=== PATIENT | female | born 1985 | race Caucasian/White ===

== ENCOUNTER 2022-12-27 15:41 | Emergency (ER) | payer MEDICAID, SELFPAY ==
[2022-12-27 15:43] VITALS: BP 143/66; PULSE 78; RESP 16; TEMP 36.6; O2SAT 99; BMI 51.1
[2022-12-27 16:12] VITALS: PULSE 84; RESP 16; O2SAT 97
--- NOTE | 2022-12-27 16:12 | EDS_ITS ---
HPI History of Present Illness Chief Complaint: Dental Detail of Chief Complaint: Left upper molar dental pain for weeks. Informant: patient Onset/Context/Timing Onset: Weeks Context: Gradual Onset Timing: Continuous Current Severity: Moderate Maximum Severity: Moderate Relieved by: NSAIDs Associated Symptoms Assocated Symptom - Dental: Negative for fever Narrative Narrative: 37-year-old female history of prior substance abuse and does not want any narcotic pain medication. She is recovering. States she had a bad left upper molar for the last year. She had a dentist do some type of procedure but he did not do a complete root canal. Intermittently causes her pain. For last 2 weeks she has had pain and some mild swelling. She denies any fever. No trouble swallowing. No trauma. She is currently on Augmentin twice a day. Using Tylenol and Motrin for pain. She has a appointment to see a dentist on January 18. Prior similar symptoms: Yes Recent Illness/Hospitalization: No PFSH PFSH Home Medications albuterol sulfate 90 mcg/actuation aerosol inhaler (Ventolin HFA) 2 puff inhalation PRN PRN Asthma 05/02/15 [History Last Taken 04/22/15] ondansetron 4 mg disintegrating tablet 4 mg PO Q8H PRN PRN Nausea #10 tabs 09/10/16 [Rx Last Taken Unknown] aspirin 81 mg chewable tablet 1 tab PO DAILY 07/06/17 [History Last Taken 07/05/17] ibuprofen 600 mg tablet 600 mg PO Q6H PRN PRN Pain ##30 07/09/17 [Rx Last Taken Unknown] labetalol 100 mg tablet 100 mg PO BID #60 tabs 07/09/17 [Rx Last Taken Unknown] naproxen 250 mg tablet 250 - 500 mg PO Q8H PRN PRN Mild Pain (1-3/10) #30 tabs 07/09/17 [Rx Last Taken Unknown] oxycodone 5 mg tablet 5 - 10 mg PO Q4H PRN PRN Mod-Severe Pain (4-10/10) #28 tabs 07/09/17 [Rx Last Taken Unknown] labetalol 100 mg tablet 200 mg PO BID ##60 07/10/17 [Rx Last Taken Unknown] naproxen 250 mg tablet 250 - 500 mg PO Q8H PRN PRN MILD PAIN ##30 07/10/17 [Rx Last Taken Unknown] oxycodone-acetaminophen 5 mg-325 mg tablet 2 tab PO Q4H PRN PRN Moderate-Severe pain ##30 07/10/17 [Rx Last Taken Unknown] Allergy/AdvReac Type Severity Reaction Status Date / Time No Known Allergies Allergy Verified 12/27/22 15:58 Social History Smoking Status: Never smoker ROS ROS ED ROS Narrative Denies recent illness. Review of Systems ROS Unobtainable: Denies due to encephalopathy Constitutional Constitutional ED: Denies chills or fever(s) Eyes Eyes: Denies blurry vision ENT ENT ED: Denies ear pain Cardiovascular Cardiovascular: Denies chest pain Respiratory/Chest Respiratory/Chest: Denies cough or dyspnea Gastrointestinal Gastrointestinal: Denies abdominal pain Genitourinary Genitourinary ED: Denies dysuria Musculoskeletal Musculoskeletal: Denies arthralgias Integumentary Denies abscess Neurologic Neurologic: Denies headache(s) Psychiatric Psychiatric: Denies anxiety Endocrine Endocrinology: Denies cold intolerance Hematologic/Lymphatic Hematologic/Lymphatic: Denies easy bleeding or easy bruising Allergic/Immunologic Allergic/Immunologic ED: Denies mouth swelling or tongue swelling EXAM Physical Exam Narrative Exam Narrative: 37-year-old female vital signs stable afebrile. Does not look septic or toxic. No significant facial swelling. No trouble breathing. Or swelling. H EENT exam TMs normal. Mouth tongue and subungual region unremarkable. Posterior pharynx normal. No trouble swallowing, breathing or stridor. Left upper first molar is eroded to the gumline. There is minimal gum swelling. No obvious abscess. No significant facial swelling. No trismus. Tenderness to palpation. Rest of her teeth are in pretty good shape. Neck nontender no lymphadenopathy. Lungs clear. Heart regular rate and rhythm no murmur. Otherwise exam unrem arkable. Const Vital Signs: 12/27/22 15:43 Temperature 97.8 F Temperature Source Temporal Pulse Rate 78 Respiratory Rate 16 Blood Pressure 143/66 H Blood Pressure Mean 91 Pulse Ox 99 Oxygen Delivery Method Room Air Positive well nourished, well developed and obese; Negative for cachectic, contractures or unkempt General Appearance ED: well developed and NAD; Negative for unkempt, cachectic, contractures or pallor Nutritional Appearance: obese; Negative for cachectic HEENT HEENT Narrative: Left upper molar eroded to the gumline. Mild swelling. No abscess. No trismus. tenderness; Negative for trauma Face and Sinus: sinuses nontender Mouth ED: Yes oral and palatal mucosa normal, Yes lips normal, Yes tongue normal, Yes salivary gland normal and No mouth trauma Mouth: oral and palatal mucosa normal, lips normal, tongue normal, salivary gland normal and No mouth trauma Teeth and Gingiva: abnormal tooth and associated gingiva Throat: posterior oropharynx normal Eyes PERRL and EOMs intact bilaterally General Eye ED: Negative for pale conjunctiva or scleral icterus Neck no lymphadenopathy, supple and no JVD General: normal visual inspection; Negative for anterior neck swelling, tenderness or submandibular swelling Lymph Lymphatic: no lymphadenopathy noted; Negative for lymphadenopathy Chest Wall inspection of chest normal and palpation of chest normal Resp normal respiratory effort, no retractions and clear to auscultation bilaterally Cardio regular rate, regular rhythm, S1 normal heart sound, S2 normal heart sound and no murmurs Palpation: Negative for palpable S3 Rate: Negative for bradycardia Rhythm: Negative for abnormal rhythm GI normal to inspection, nondistended, normoactive bowel sounds, non-tender, non- distended and no masses Back/Spine no CVA tenderness General Back: Negative for CVA tenderness Cervical Spine: Negative for other Thoracic Spine / Upper Back: Negative for thoracic spinal tenderness Extremity normal to inspection and no joint enlargement General Extremety ED: Negative for edema General Extremity: Negative for edema Neuro oriented x3, CN's II-XII intact bilaterally, moves all extremities and no focal motor deficits Sensorium / Orientation: alert, oriented to person, oriented to place and oriented to time; Negative for orientation impaired Motor Exam: strength 5/5 throughout Psych mental status grossly normal Appearance: Negative for unkempt Attitude: No agitated Mood & Affect: Negative for depressed, anxious or tearful Skin no rashes or lesions noted and no wounds General Skin Exam: Negative for pallor Image ED - URI/Dental Diagram: 1. Left upper first molar eroded to the gumline. Minimal swelling. Tender. No obvious abscess. MDM MDM MDM Narrative Medical decision making narrative: Patient with eroded, tender most likely infected first upper molar. Continue Tylenol Motrin. She is already on Augmentin. She has a dental appointment in 3 weeks which she can follow-up with. Discharge Plan Triage Chief Complaint: Dental ED Provider: Herbert Gallagher Dx/Rx/DC Orders Clinical Impression: Pain, dental, Abscess, dental Instructions: Dental Abscess, ED Dental Pain Prescriptions: No Action albuterol sulfate [Ventolin HFA] 18 GM HFA aerosol inhaler 2 puff inhalation PRN PRN (Reason: Asthma) Label Comments: ondansetron 4 MG tablet 4 mg PO Q8H PRN PRN (Reason: Nausea) Qty: 10 0RF naproxen 250 MG tablet 250 - 500 mg PO Q8H PRN PRN (Reason: Mild Pain (-10/20)) Qty: 30 0RF labetalol 100 MG tablet 100 mg PO BID Qty: 60 0RF oxycodone 5 MG tablet 5 - 10 mg PO Q4H PRN PRN (Reason: Mod-Severe Pain (-05/22)) Qty: 28 0RF ibuprofen 600 MG tablet 600 mg PO Q6H PRN PRN (Reason: Pain) Qty: 30 0RF naproxen 250 MG tablet 250 - 500 mg PO Q8H PRN PRN (Reason: MILD PAIN) Qty: 30 0RF oxycodone-acetaminophen 1 TABLET tablet 2 tab PO Q4H PRN PRN (Reason: Moderate-Severe pain) Qty: 30 0RF labetalol 100 MG tablet 200 mg PO BID Qty: 60 1RF aspirin 81 MG tablet,chewable 1 tab PO DAILY Primary Care Provider: Oskar Almanza Referrals: Oskar Almanza MD [Primary Care Provider] - Activity Restrictions/Additional Instructions: Warm salt water gargling. Alternate Motrin and Tylenol for pain. Continue your antibiotic Augmentin 1 pill twice a day until gone. Follow-up with your dentist as soon as possible he may want to call and see if you get in with your appointment sooner. Disposition Disposition: Home, Self Care
== END 2022-12-27 16:22 | disposition home or self-care (01) ==
LOC: ED 16:19
PROVIDERS: Emergency Provider Emergency Medicine; PCP Family Medicine; Visit Provider Emergency Medicine
DX: K04.7 Periapical abscess without sinus (principal); E66.9 Obesity, unspecified; Z79.82 Long term (current) use of aspirin; Z79.899 Other long term (current) drug therapy
CPT/HCPCS: 99282

== ENCOUNTER → 2024-09-24 | Outpatient (CLI) | payer MEDICAID, SELFPAY ==
[2024-09-29 16:09] LABS: HPV APTIMA, High Risk Negative (Negative)
== END | disposition home or self-care (01) ==
LOC: LABSPEC 11:21
PROVIDERS: PCP Family Medicine; Referring Provider Nurse Practitioner Women's Health; Visit Provider Nurse Practitioner Women's Health
DX: Z12.4 Encounter for screening for malignant neoplasm of cervix (principal); N89.8 Other specified noninflammatory disorders of vagina
CPT/HCPCS: 87070; 87205; 87624; 88175; G0145

== ENCOUNTER → 2024-10-03 | Outpatient (CLI) | payer MEDICAID, SELFPAY ==
--- NOTE | 2024-10-03 11:59 | BI_ITS ---
PROCEDURE: SCRN MAMM (CAD)W/BRIANA BILAT REASON FOR EXAM: F, Age 39 y/o, presents for annual screening mammogram. No family history of breast cancer. TECHNIQUE: Bilateral screening digital breast tomosynthesis with 2D and 3D images. Computer aided detection. COMPARISON: Baseline examination, no priors. FINDINGS: There are scattered areas of fibroglandular density. No suspicious masses, areas of developing architectural distortion, or suspicious calcifications. BI/SCRN MAMM (CAD)W/BRIANA BILAT IMPRESSION: There is no mammographic evidence of malignancy in either breast. BI-RADS 1: NEGATIVE. RECOMMEND ANNUAL MAMMOGRAPHIC SCREENING. Follow-up code: Routine Follow-up The patient will be notified of the results by letter. Reading Location: [id number]
== END | disposition home or self-care (01) ==
LOC: OPBI 11:58
PROVIDERS: PCP Family Medicine; Referring Provider Nurse Practitioner Women's Health; Visit Provider Nurse Practitioner Women's Health
DX: Z12.31 Encounter for screening mammogram for malignant neoplasm of breast (principal)
CPT/HCPCS: 77063; 77067

== ENCOUNTER → 2025-03-12 | Outpatient (CLI) | payer MEDICAID, SELFPAY ==
[2025-03-12 16:39] LABS: Hematocrit 37.1 % (37-47); Hemoglobin 11.9 g/dL (12.0-15.0); Immature Granulocytes Count 0.030 X10^3/uL (0.0-0.0); Mean Corp Hgb Conc 32.1 g/dL (32-36); Mean Corpuscular Volume 87.9 fL (81-99); Mean Platelet Vol. 10.6 fl (6.2-12.0); NRBC Flagged by Analyzer 0 % (0-5); Platelet Count 289 K/mm3 (150-450); RBC Distribution Width CV 12.9 % (11.6-14.6); RBC Distribution Width SD 41.3 fl (35.1-43.9); Red Blood Count 4.22 M/mm3 (4.2-5.4); White Blood Count 5.3 K/mm3 (4.4-11.0)
[2025-03-12 18:06] LABS: AST(SGOT) 16 U/L (<=31); Alanine Aminotransfer ALT/SGPT 8 U/L (<=34); Albumin, Serum 3.8 g/dL (3.5-5.0); Alkaline Phosphatase 48 U/L (35-104); Anion Gap 10 (5-15); BUN 16 mg/dL (4-19); BUN/Creat Ratio 21.3 RATIO (10-20); Calcium,Total 8.8 mg/dL (7.6-11.0); Carbon Dioxide 26.5 mmol/L (21.0-32.0); Chloride 103 mmol/L (98-108); Cholesterol 192 mg/dL (<=200); Ferritin 29 ng/mL (22-378); Globulin 2.6 g/dL (2.2-4.2); Glucose 93 mg/dL (70-99); Low Density Lipoprotein Calc. 127 mg/dL; Potassium 4.3 mmol/L (3.3-5.1); Triglycerides 65 mg/dL; Very Low Density Lipoprotein 13 mg/dL (5-40); Vitamin D,25 Hydroxy 27.3 ng/mL (30-100); cholesterol:hdl ratio screen 3.68
[2025-03-12 18:55] LABS: Iron 34 ug/dL (50-170); Iron Binding Capacity,Total 283 ug/dL (250-450); Iron Binding Capacity,Unsat 249 ug/dL (228-428)
== END | disposition home or self-care (01) ==
LOC: VSLAB 15:49
PROVIDERS: PCP Nurse Practitioner Family; Visit Provider Nurse Practitioner Family
DX: E28.2 Polycystic ovarian syndrome (principal); D50.9 Iron deficiency anemia, unspecified; E55.9 Vitamin D deficiency, unspecified; E78.5 Hyperlipidemia, unspecified
CPT/HCPCS: 36415; 80053; 80061; 82306; 82728; 83036; 83540; 83550; 85025